=== PATIENT | female | born 1960 | race American Indian/Alaskan Native ===

== ENCOUNTER 2022-04-04 12:13 | Emergency (ER) | payer BC, MEDICAID ==
[2022-04-04] MEDS ORDERED: predniSONE 20 MG Tab PO ONE (12:14)
[2022-04-04] MEDS ORDERED: methylPREDNISolone Sodium Succinate 125 MG/2 ML SDV IM ONE (14:20)
[2022-04-04] MEDS ORDERED: predniSONE 20 MG Tab ONE (14:30)
== END 2022-04-04 14:42 | disposition home or self-care (01) ==
LOC: DL.ED 12:13
DX: L23.7 Allergic contact dermatitis due to plants, except food (principal); E78.00 Pure hypercholesterolemia, unspecified; F17.210 Nicotine dependence, cigarettes, uncomplicated; Z91.012 Allergy to eggs; Z79.899 Other long term (current) drug therapy
CPT/HCPCS: 96372; 99283; J2930; J7512